=== PATIENT | male | born 1950 | race Hispanic/Latino ===

== ENCOUNTER → 2018-02-13 | Outpatient (CLI) | payer OTHER | END | disposition home or self-care (01) | LOC: RAH 10:36 | PROVIDERS: ATTEND Urology | DX: N20.0 Calculus of kidney (principal) | CPT/HCPCS: 74018; 76100 ==

== ENCOUNTER 2019-04-09 14:24 | Inpatient (IN) | payer OTHER ==
[~2019-04-09] VITALS: Ht 170.2 cm; Wt 99.7 kg
[2019-04-09] MEDS ORDERED: ZOSYN 3.375GM+NS 50ML 50 ML IV ONE (14:47)
[2019-04-09] MEDS ORDERED: LEVOFLOXACIN 500 MG/D5W 100 ML 100 ML ONE (14:47)
[2019-04-09] MEDS ORDERED: ACETAMINOPHEN EXTRA STRENGTH 500 MG TABLET ONE (14:48)
[2019-04-09] MEDS ORDERED: SODIUM CHLORIDE 0.9% 1000ML 3,000 ML IV ONE (14:49)
[2019-04-09 15:02] LABS: BASOPHILS % (AUTO) 0.2 % (0.0-5.0); EOSINOPHILS % (AUTO) 0.1 % (0.0-8.0); LYMPHOCYTES % (AUTO) 23.1 % (21.0-51.0); MEAN CORPUSCULAR HGB CONC 34.2 g/dL (32.0-36.0); MEAN CORPUSCULAR VOLUME 87.8 fL (79-99); MONOCYTES % (AUTO) 2.1 % (3.0-13.0); NEUTROPHILS % (AUTO) 74.5 % (40.0-77.0); NUCLEATED RED BLOOD CELLS 0.1 % (0.0-0.19); PLATELET COUNT (AUTO) 120 K/uL (130-400); RED BLOOD CELL COUNT(AUTO) 4.45 MIL/uL (4.50-6.20); RED CELL DISTRIBUTION WIDTH 12.7 % (11.0-15.5); WHITE BLOOD COUNT (AUTO) 8.4 K/uL (4.8-10.8)
[2019-04-09 15:21] LABS: INR 0.93 (0.85-1.15); PARTIAL THROMBOPLASTIN TIME 30.8 SEC (26.3-35.5); PROTHROMBIN TIME 9.8 SEC (9.6-11.6)
[2019-04-09 15:26] LABS: CARBON DIOXIDE 18 mmol/L (21-32); CHLORIDE 97 mmol/L (101-111); CREATININE 1.3 mg/dL (0.5-1.5); GLOMERULAR FILTR. RATE CALC 58 mL/min (>60); GLUCOSE,RANDOM 202 mg/dL (70-105); POTASSIUM 3.9 mmol/L (3.5-5.1); SODIUM SERUM 133 mmol/L (136-145); UREA NITROGEN, BLOOD 10 mg/dL (7-18)
[2019-04-09 15:29] LABS: RAPID GROUP A STREP POSITIVE (NEGATIVE)
[2019-04-09 15:37] LABS: ALANINE AMINOTRANSFERASE 47 U/L (12-78); ASPARTATE AMINOTRANSFERASE 59 U/L (10-37); BILIRUBIN,TOTAL 1.3 mg/dL (0.2-1.0); CREATINE KINASE, TOTAL 96 U/L (21-232); MYOGLOBIN 33 ng/mL (10-92); TOTAL PROTEIN, SERUM 8.6 g/dL (6.0-8.3); TROPONIN I < 0.04 ng/mL (0.00-0.06)
[2019-04-09 16:19] LABS: ABG BASE EXCESS -5.8 mmol/L (-2.0-3.0); ABG HCO3 16.6 mmol/L (21.0-28.0); ABG OXYGEN SATURATION 97.9 % (95.0-99.0); ABG PCO2 26 mmHg (35-48)
[2019-04-09 16:45] LABS: APPEARANCE,URINE CLOUDY (CLEAR); BILIRUBIN,URINE NEGATIVE (NEGATIVE); COLOR,URINE YELLOW (YELLOW); GLUCOSE, URINE (UA) 250 mg/dL (NEGATIVE); KETONES,URINE 40 mg/dL (NEGATIVE); LEUKOCYTE ESTERASE ,URINE MODERATE (NEGATIVE); NITRATE,URINE POSITIVE (NEGATIVE); OCCULT BLOOD,URINE MODERATE (NEGATIVE); PROTEIN,URINE 100 mg/dL (NEGATIVE)
[2019-04-09 17:01] LABS: WBC,URINE 26-50 /HPF (0-1)
[2019-04-09 17:02] LABS: BACTERIA,URINE Few /HPF (None Seen); SQUAMOUS EPITHELIAL CELL,UR Rare /HPF (0-2)
[2019-04-09] MEDS: MEROPENEM 500 MG VIAL IV SCH (18:00)
[2019-04-09] MEDS: SODIUM CHLORIDE 0.9% 1000ML 1,000 ML IV SCH ×2 (18:09→23:52)
[2019-04-09] MEDS ORDERED: LACTULOSE 20 GM/30 ML UDCUP PO PRN (18:15)
[2019-04-09] MEDS ORDERED: MORPHINE SULFATE 2 MG/ML 1ML SYG IV PRN (18:15)
[2019-04-09] MEDS ORDERED: ACETAMINOPHEN 325 MG TAB PO PRN ×2 (18:15)
[2019-04-09] MEDS: DOXYCYCLINE 100MG+NS 250ML 250 ML IV SCH (18:15)
[2019-04-09] MEDS ORDERED: ONDANSETRON HCL 4 MG/2 ML VIAL IV PRN (18:15)
[2019-04-09] MEDS ORDERED: VANCOMYCIN PROTOCOL PER PHARMACY IV PRN (18:15)
[2019-04-09 18:50] LABS: HEMOGLOBIN A1C 6.9 % (4.0-6.0)
[2019-04-09] MEDS ORDERED: MEROPENEM 500 MG VIAL ONE (19:35)
[2019-04-09] MEDS ORDERED: SODIUM CHLORIDE 0.9% 1000ML 1,000 ML IV ONE (19:36)
[2019-04-09] MEDS ORDERED: SODIUM CHLORIDE 0.9% 50 ML IV ONE (19:36)
[2019-04-09 19:42] LABS: MAGNESIUM 1.8 mg/dL (1.80-2.40); PHOSPHORUS 1.3 mg/dL (2.5-4.9)
[2019-04-09] MEDS ORDERED: VANCOMYCIN 2 GM in SODIUM CHLORIDE 0.9% 500ML 500 ML IV ONE (20:00)
[2019-04-09] MEDS ORDERED: COMPOUND IV REFRIGERATED 1 EACH IVSOLN MISC PRN (20:30)
[2019-04-09] MEDS ORDERED: DOXYCYCLINE 100MG+NS 250ML 250 ML IV ONE (20:41)
[2019-04-09] MEDS: FAMOTIDINE/PF 20 MG/2 ML VIAL IV SCH (21:00)
[2019-04-09] MEDS: INSULIN GLARGINE 100 UNITS/ML 10 ML VIAL SQ SCH (21:00)
[2019-04-09] MEDS ORDERED: FAMOTIDINE/PF 20 MG/2 ML VIAL IV ONE (21:58)
[2019-04-09 23:15] VITALS: BP 111/40
[2019-04-10] VITALS (15 sets, daily range): BP systolic 93–137; BP diastolic 44–84
[2019-04-10] MEDS ORDERED: ESCI10TA54 PO (00:28)
[2019-04-10] MEDS ORDERED: FINA5TAB41 PO (00:28)
[2019-04-10] MEDS ORDERED: DONE10TA36 PO (00:28)
[2019-04-10] MEDS ORDERED: TERB250T51 PO (00:28)
[2019-04-10] MEDS ORDERED: SIMV40TA59 PO (00:28)
[2019-04-10] MEDS ORDERED: MIRA50TA PO (00:28)
[2019-04-10] MEDS ORDERED: NITR100C PO (00:28)
[2019-04-10] MEDS ORDERED: SILO8CAP6 PO (00:28)
[2019-04-10] MEDS ORDERED: MEMA10PO MC (00:28)
[2019-04-10] MEDS ORDERED: METF-445 PO (00:28)
[2019-04-10] MEDS ORDERED: LISI2.5T2 PO (00:28)
[2019-04-10] MEDS: MEROPENEM 500 MG VIAL IV SCH ×2 (02:00→09:42)
[2019-04-10] MEDS: SODIUM CHLORIDE 0.9% 1000ML 1,000 ML IV SCH ×2 (05:27→13:31)
[2019-04-10] MEDS ORDERED: VANCOMYCIN 750MG + NS 250 ML IV SCH ×2 (06:00)
[2019-04-10] MEDS: DOXYCYCLINE 100MG+NS 250ML 250 ML IV SCH (07:02)
[2019-04-10] MEDS: FAMOTIDINE/PF 20 MG/2 ML VIAL IV SCH ×2 (09:42→21:45)
[2019-04-10] MEDS: ENOXAPARIN SODIUM 40 MG/0.4 ML SYRINGE SQ SCH (09:42)
--- NOTE | 2019-04-10 10:00 | NUR ---
DR Yvonne ACOSTA HERE TO SEE PATIENT. UPDATED. SPOKE TO PATIENT AND SPOUSE IN DETAIL REGARDING STATUS AND PLAN OF CARE. ALL QUESTIONS ANSWERED IN DETAIL. STATUS DOWNGRADED.
[2019-04-10 11:09] LABS: BASOPHILS % (AUTO) 0.4 % (0.0-5.0); EOSINOPHILS % (AUTO) 0.7 % (0.0-8.0); HEMATOCRIT 28.7 % (42-54); LYMPHOCYTES % (AUTO) 17.1 % (21.0-51.0); MEAN CORPUSCULAR HEMOGLOBIN 29.6 pg (27.0-33.0); MEAN CORPUSCULAR HGB CONC 34.6 g/dL (32.0-36.0); MEAN CORPUSCULAR VOLUME 85.6 fL (79-99); MONOCYTES % (AUTO) 12.9 % (3.0-13.0); NEUTROPHILS % (AUTO) 68.9 % (40.0-77.0); PLATELET COUNT (AUTO) 99 K/uL (130-400); RED BLOOD CELL COUNT(AUTO) 3.36 MIL/uL (4.50-6.20); RED CELL DISTRIBUTION WIDTH 12.8 % (11.0-15.5); WHITE BLOOD COUNT (AUTO) 6.3 K/uL (4.8-10.8)
[2019-04-10 11:19] LABS: CREATININE 0.9 mg/dL (0.5-1.5); POTASSIUM 3.5 mmol/L (3.5-5.1)
[2019-04-10 11:24] LABS: ALBUMIN 2.7 g/dL (3.5-5.0); BILIRUBIN,TOTAL 0.4 mg/dL (0.2-1.0); TOTAL PROTEIN, SERUM 5.8 g/dL (6.0-8.3)
[2019-04-10] MEDS ORDERED: PHARMACY COMMUNICATION MISC SCH ×3 (11:30→13:00)
--- NOTE | 2019-04-10 12:05 | NUR ---
ANGELINE Sarah met with pt and family. Pt lives with Lenora Curry [phone]. Pt reports prior to admit, pt was independent of all ADLS, no DME or in home care services. Deny dc needs, plan is home with family. Addendum: 04/10/19 at 1207 by JULIENNE LIANG SS Amended: Links added.
[2019-04-10] MEDS: NEUTRA-PHOS PACKET 1 EACH PO SCH ×3 (13:30→22:57)
[2019-04-10] MEDS: POTASSIUM CHLORIDE 20 MEQ ERTAB PO SCH ×3 (13:31→16:37)
[2019-04-10] MEDS: UNASYN 3GM+NS 100ML 100 ML IV SCH ×2 (16:37→22:47)
[2019-04-10] MEDS: DONEPEZIL HCL 5 MG TAB PO SCH (16:37)
--- NOTE | 2019-04-10 16:39 | NUR ---
PATIENT TO TRANSFER TO MEDICAL FLOOR ROOM 414. REPORT GIVEN TO BHAVIK.
--- NOTE | 2019-04-10 17:09 | NUR ---
TRANSFERRED TO ROOM 414 VIA WHEELCHAIR WITH ALL BELONGINGS. SPOUSE AND DAUGHTER WITH PATIENT. DINNER TRAY PROVIDED. SETTLED IN ROOM. NO DISTRESS UPON TRANSFER. PATIENT AMBULATED TO RESTROOM WITH MINIMAL ASSISTANCE FROM SPOUSE. STRONG, STEADY GAIT. MELLISA GUTIERRES IN ROOM - ENDORSED CARE.
--- NOTE | 2019-04-10 17:09 | NUR ---
RECEIVED REPORT AND PATIENT RECEIVED PATIENT TO ROOM 414 WITH FAMILY AT SIDE PATIENT FULL CODE, HX OF DEMENTIA AND FORGETFULNESS HTN, BACK SURGERY FLU A & B NEG , POSITIVE FOR STREP. HAS NS @ 100 CC/HR INFUSING AND TWO SITES RAC 18G AND LAC 18G BOTH PLACED ON 04/09/19,K+ 3.5 REPLACEMENT OF 60MEG GIVEN BEFORE TRANSFER. LAB W 6.3, H/H 9.9/28.7 N 139, K 3.5, BUN 8 , CRE 0.9 MAG 1.8, SR 70-80'S UP IN CHAIR FULL WEIGHT BEARING UA SENT PENDING RESULT OF CULTURE, OR SON STAY WITH PATIENT , STANDING TONIGHT ., PATIENT ORIENTATE TO ROOM WILL CONTINUE TO MONITOR
[2019-04-10] MEDS ORDERED: GLUCAGON 1MG KIT 1 MG ML IM PRN (17:45)
[2019-04-10] MEDS ORDERED: DEXTROSE 50%-WATER 50 ML DISP.SYRIN IV PRN (17:45)
[2019-04-10] MEDS: INSULIN HUMULIN R 100 UNIT/ML 3ML SQ SCH (20:10)
[2019-04-10] MEDS: INSULIN GLARGINE 100 UNITS/ML 10 ML VIAL SQ SCH (20:51)
[2019-04-10] MEDS: MEMANTINE HCL 5 MG TABLET PO SCH (21:16)
[2019-04-10] MEDS: SIMVASTATIN 20 MG TABLET PO SCH (21:16)
[2019-04-11] VITALS (7 sets, daily range): BP systolic 130–155; BP diastolic 60–97
[2019-04-11] MEDS: MEROPENEM 500 MG VIAL IV SCH ×3 (01:31→17:51)
[2019-04-11] MEDS: SODIUM CHLORIDE 0.9% 1000ML 1,000 ML IV SCH ×4 (01:35→20:50)
[2019-04-11] MEDS: UNASYN 3GM+NS 100ML 100 ML IV SCH (05:01)
[2019-04-11] MEDS: INSULIN HUMULIN R 100 UNIT/ML 3ML SQ SCH ×4 (06:00→21:06)
[2019-04-11] MEDS: IPRATROPIUM/ALBUTEROL SULFATE 3 ML SOLUTION IH SCH ×4 (06:05→23:15)
[2019-04-11 07:10] LABS: CREATININE 0.9 mg/dL (0.5-1.5); POTASSIUM 3.7 mmol/L (3.5-5.1)
[2019-04-11 07:20] LABS: HEMATOCRIT 29.6 % (42-54); MEAN CORPUSCULAR HEMOGLOBIN 29.8 pg (27.0-33.0); MEAN CORPUSCULAR HGB CONC 34.1 g/dL (32.0-36.0); MEAN CORPUSCULAR VOLUME 87.4 fL (79-99); PLATELET COUNT (AUTO) 112 K/uL (130-400); RED BLOOD CELL COUNT(AUTO) 3.39 MIL/uL (4.50-6.20); RED CELL DISTRIBUTION WIDTH 12.7 % (11.0-15.5); WHITE BLOOD COUNT (AUTO) 6.8 K/uL (4.8-10.8)
[2019-04-11] MEDS: Silodosin 8 MG PO SCH (09:00)
[2019-04-11] MEDS: Terbinafine HCl 250 MG PO SCH (09:00)
[2019-04-11] MEDS: Escitalopram Oxalate 10 MG PO SCH (09:00)
--- NOTE | 2019-04-11 10:00 | NUR ---
WAITING ON SPOUSE TO COME IN TO SIGN CONSENT FOR PLACEMENT OF PICC LINE. PT. WITH HX. OF DEMENTIA AND SPOUSE SIGNS ALL HIS PAPERS.
[2019-04-11] MEDS: FAMOTIDINE/PF 20 MG/2 ML VIAL IV SCH ×2 (10:12→20:54)
[2019-04-11] MEDS: LISINOPRIL 2.5 MG TABLET PO SCH (10:12)
[2019-04-11] MEDS: MEMANTINE HCL 5 MG TABLET PO SCH ×2 (10:12→20:54)
[2019-04-11] MEDS: FINASTERIDE 5 MG TABLET PO SCH (10:12)
[2019-04-11] MEDS: ENOXAPARIN SODIUM 40 MG/0.4 ML SYRINGE SQ SCH (10:13)
[2019-04-11] MEDS: NEUTRA-PHOS PACKET 1 EACH PO SCH ×4 (10:16→20:56)
[2019-04-11 11:29] LABS: INR 0.92 (0.85-1.15); PROTHROMBIN TIME 9.7 SEC (9.6-11.6)
--- NOTE | 2019-04-11 16:00 | NUR ---
PICC LINE PLACED AND CXR DONE. LT. UPPER ARM. NO ORDER TO USE YET DRESSING WELL SECURED, NO BLEEDING NOTED.
--- NOTE | 2019-04-11 17:00 | NUR ---
DISCHARGE PLAN CONFLICT ORDER RECD FOR SNF. SPOKE TO MARICEL AT [facility], DID NOT GIVE CONSENT YET SAW DAUGHTER IN HALLWAY WITH SPOUSE, STATES NO PT WILL NOT GO TO A SNF. ASKED CAN WE DO AIU IN [place]?, PT IS FROM [place], REC ABX AUG 2018, NO HOSPITALIZATION IN LAST 6 MOS. [address] WITH [address] HULL BEFORE, CAN WE MAKE INQUIRY? CALL TO DR HULL OFFICE SPOKE TO ERIN TO INQUIRE ABOUT PROCESS OF REFERRAL FROM [facility] TO [facility] VB [place], WAS TOLD EVERYTHING CAN BE DONE AT DR. MARVIN OFFICE, [facility]. CALL TO SHARATH CASTELLANO, ADVISED HER THAT FAMILY DOES NOT WANT SNF AT ALL, WANTS AIU IN [place]. . GRAY STATES SPOUSE AGREED TO SNF,WILL SPEAK TO FAMILY IN AM. NO AIU ORDERS GIVEN. ADVISED DAUGHTER, SHE STATES MOM DOES NOT WANT SNF FOR PT. CM TO FOLLOW. ANTICIPATE DC ON SUNDAY TO DR. HULL'S CLINIC IF FAMILY AGAIN REFUSES SNF Addendum: 04/11/19 at 1934 by ZANDER LAMBERT RN CM Amended: Links added.
[2019-04-11] MEDS: DONEPEZIL HCL 5 MG TAB PO SCH (17:53)
[2019-04-11] MEDS: SIMVASTATIN 20 MG TABLET PO SCH (20:54)
[2019-04-11] MEDS: INSULIN GLARGINE 100 UNITS/ML 10 ML VIAL SQ SCH (21:05)
[2019-04-12] MEDS: MEROPENEM 500 MG VIAL IV SCH ×3 (02:18→17:44)
[2019-04-12 03:45] VITALS: BP 145/74
[2019-04-12 05:03] LABS: BASOPHILS % (AUTO) 0.5 % (0.0-5.0); EOSINOPHILS % (AUTO) 2.4 % (0.0-8.0); HEMATOCRIT 29.5 % (42-54); LYMPHOCYTES % (AUTO) 26.3 % (21.0-51.0); MEAN CORPUSCULAR HEMOGLOBIN 29.7 pg (27.0-33.0); MEAN CORPUSCULAR HGB CONC 34.8 g/dL (32.0-36.0); MEAN CORPUSCULAR VOLUME 85.4 fL (79-99); MONOCYTES % (AUTO) 9.7 % (3.0-13.0); NEUTROPHILS % (AUTO) 61.1 % (40.0-77.0); PLATELET COUNT (AUTO) 118 K/uL (130-400); RED BLOOD CELL COUNT(AUTO) 3.45 MIL/uL (4.50-6.20); RED CELL DISTRIBUTION WIDTH 12.7 % (11.0-15.5); WHITE BLOOD COUNT (AUTO) 4.6 K/uL (4.8-10.8)
[2019-04-12 05:10] LABS: CREATININE 0.8 mg/dL (0.5-1.5); POTASSIUM 3.3 mmol/L (3.5-5.1)
[2019-04-12] MEDS: INSULIN HUMULIN R 100 UNIT/ML 3ML SQ SCH ×4 (06:13→21:00)
[2019-04-12] MEDS: IPRATROPIUM/ALBUTEROL SULFATE 3 ML SOLUTION IH SCH ×4 (06:15→23:19)
[2019-04-12 08:00] VITALS: BP 131/63
[2019-04-12] MEDS: MEMANTINE HCL 5 MG TABLET PO SCH ×2 (08:25→21:40)
[2019-04-12] MEDS: FINASTERIDE 5 MG TABLET PO SCH (08:25)
[2019-04-12] MEDS: LISINOPRIL 2.5 MG TABLET PO SCH (08:25)
[2019-04-12] MEDS: LACTOBACILLUS RHAMNOSUS GG 1 EACH CAP.SPRINK PO SCH (08:25)
[2019-04-12] MEDS: FAMOTIDINE/PF 20 MG/2 ML VIAL IV SCH ×2 (08:25→21:40)
[2019-04-12] MEDS: NEUTRA-PHOS PACKET 1 EACH PO SCH (08:26)
[2019-04-12] MEDS: ENOXAPARIN SODIUM 40 MG/0.4 ML SYRINGE SQ SCH (08:27)
[2019-04-12] MEDS: Terbinafine HCl 250 MG PO SCH (09:00)
[2019-04-12] MEDS: Silodosin 8 MG PO SCH (09:00)
[2019-04-12] MEDS: Escitalopram Oxalate 10 MG PO SCH (09:00)
[2019-04-12] MEDS: SODIUM CHLORIDE 0.9% 1000ML 1,000 ML IV SCH (10:28)
[2019-04-12 12:00] VITALS: BP 164/85
--- NOTE | 2019-04-12 14:00 | NUR ---
GETTING ANXIOUS, WANTS TO GO HOME, NOT LISTENING TO ANY REASONING FROM FAMILY, DR. Hussein. HER AT THIS TIME AND GAVE ORDER FOR ATIVAN 0.5MG IV Q 6 PRN
[2019-04-12] MEDS ORDERED: LORAZEPAM 2 MG/ML 1 ML VIAL IVP PRN (14:30)
[2019-04-12] MEDS ORDERED: ONDANSETRON HCL 4 MG/2 ML VIAL IV PRN (14:45)
[2019-04-12] MEDS: POTASSIUM CHLORIDE 20 MEQ ERTAB PO SCH (14:52)
--- NOTE | 2019-04-12 15:00 | NUR ---
ATIVAN DOSE GIVEN, WILL FOLLOW.
[2019-04-12 16:00] VITALS: BP 162/87
[2019-04-12] MEDS: DONEPEZIL HCL 5 MG TAB PO SCH (17:34)
--- NOTE | 2019-04-12 18:00 | NUR ---
HAS SETTLED DOWN, SITTING IN CHAIR, FAMILY IN ROOM.
--- NOTE | 2019-04-12 18:01 | NUR ---
NEW IV SART 20G RT. FOREARM.
[2019-04-12 19:00] VITALS: BP 142/72
[2019-04-12] MEDS: SIMVASTATIN 20 MG TABLET PO SCH (21:40)
[2019-04-12] MEDS: INSULIN GLARGINE 100 UNITS/ML 10 ML VIAL SQ SCH (21:51)
[2019-04-13] VITALS: BP 173/90
[2019-04-13] MEDS: MEROPENEM 500 MG VIAL IV SCH ×3 (02:06→18:26)
[2019-04-13 04:13] VITALS: BP 126/65
[2019-04-13 05:43] LABS: HEMATOCRIT 30.6 % (42-54); MEAN CORPUSCULAR HEMOGLOBIN 30.1 pg (27.0-33.0); MEAN CORPUSCULAR HGB CONC 34.8 g/dL (32.0-36.0); MEAN CORPUSCULAR VOLUME 86.5 fL (79-99); NUCLEATED RED BLOOD CELLS 0.1 % (0.0-0.19); PLATELET COUNT (AUTO) 147 K/uL (130-400); RED BLOOD CELL COUNT(AUTO) 3.54 MIL/uL (4.50-6.20); RED CELL DISTRIBUTION WIDTH 12.5 % (11.0-15.5); WHITE BLOOD COUNT (AUTO) 4.2 K/uL (4.8-10.8)
[2019-04-13 05:51] LABS: CREATININE 0.8 mg/dL (0.5-1.5); POTASSIUM 3.7 mmol/L (3.5-5.1)
[2019-04-13] MEDS: IPRATROPIUM/ALBUTEROL SULFATE 3 ML SOLUTION IH SCH ×3 (06:14→19:15)
[2019-04-13] MEDS: INSULIN HUMULIN R 100 UNIT/ML 3ML SQ SCH ×4 (07:30→21:00)
--- NOTE | 2019-04-13 08:00 | NUR ---
AM SHIFT ASSESSMENT.
[2019-04-13 08:15] VITALS: BP 137/82
[2019-04-13] MEDS: Silodosin 8 MG PO SCH (09:00)
[2019-04-13] MEDS: Escitalopram Oxalate 10 MG PO SCH (09:00)
[2019-04-13] MEDS ORDERED: PANTOPRAZOLE 40 MG/VIAL IVP SCH (09:00)
[2019-04-13] MEDS: Terbinafine HCl 250 MG PO SCH (09:00)
[2019-04-13] MEDS: LACTOBACILLUS RHAMNOSUS GG 1 EACH CAP.SPRINK PO SCH (09:10)
[2019-04-13] MEDS: MEMANTINE HCL 5 MG TABLET PO SCH ×2 (09:10→22:22)
[2019-04-13] MEDS: FINASTERIDE 5 MG TABLET PO SCH (09:11)
[2019-04-13] MEDS: LISINOPRIL 2.5 MG TABLET PO SCH (09:11)
[2019-04-13] MEDS: FAMOTIDINE 20MG TAB 20 MG TAB PO SCH ×2 (09:11→22:22)
[2019-04-13] MEDS: ENOXAPARIN SODIUM 40 MG/0.4 ML SYRINGE SQ SCH (09:13)
--- NOTE | 2019-04-13 10:00 | NUR ---
CONFUSED AT TIMES AND DOES NOT ALWAYS FOLLOW COMMANDS, ALSO DOES NOT ALWAYS FOLLOW COMMANDS. FAMILY MEMBER AT BEDSIDE AT ALL TIMES.
[2019-04-13 11:36] VITALS: BP 131/85
[2019-04-13] MEDS: PANTOPRAZOLE SODIUM 40 MG TABLET.DR PO SCH (11:49)
[2019-04-13] MEDS: POTASSIUM CHLORIDE 20 MEQ ERTAB PO SCH (13:00)
--- NOTE | 2019-04-13 13:56 | NUR ---
POT. DOSE HELD, ONE X DOSE AND HAS BEEN GIVEN.
[2019-04-13] MEDS: DONEPEZIL HCL 5 MG TAB PO SCH (16:30)
[2019-04-13 21:23] VITALS: BP 142/85
[2019-04-13] MEDS: SIMVASTATIN 20 MG TABLET PO SCH (22:22)
[2019-04-13] MEDS: INSULIN GLARGINE 100 UNITS/ML 10 ML VIAL SQ SCH (22:27)
[2019-04-14 00:02] VITALS: BP 152/78
[2019-04-14] MEDS: IPRATROPIUM/ALBUTEROL SULFATE 3 ML SOLUTION IH SCH ×4 (00:02→17:33)
[2019-04-14] MEDS: MEROPENEM 500 MG VIAL IV SCH ×3 (01:17→18:02)
[2019-04-14 03:30] VITALS: BP 139/73
[2019-04-14] MEDS: INSULIN HUMULIN R 100 UNIT/ML 3ML SQ SCH ×3 (07:30→16:30)
[2019-04-14 08:02] VITALS: BP 142/82
[2019-04-14] MEDS: Silodosin 8 MG PO SCH (09:00)
[2019-04-14] MEDS: FAMOTIDINE 20MG TAB 20 MG TAB PO SCH (09:00)
[2019-04-14] MEDS: Escitalopram Oxalate 10 MG PO SCH (09:00)
[2019-04-14] MEDS: Terbinafine HCl 250 MG PO SCH (09:00)
[2019-04-14] MEDS: MEMANTINE HCL 5 MG TABLET PO SCH (10:06)
[2019-04-14] MEDS: LACTOBACILLUS RHAMNOSUS GG 1 EACH CAP.SPRINK PO SCH (10:06)
[2019-04-14] MEDS: PANTOPRAZOLE SODIUM 40 MG TABLET.DR PO SCH (10:06)
[2019-04-14] MEDS: FINASTERIDE 5 MG TABLET PO SCH (10:06)
[2019-04-14] MEDS: LISINOPRIL 2.5 MG TABLET PO SCH (10:07)
[2019-04-14] MEDS: ENOXAPARIN SODIUM 40 MG/0.4 ML SYRINGE SQ SCH (10:10)
[2019-04-14 11:19] VITALS: BP 140/83
[2019-04-14] MEDS: POTASSIUM CHLORIDE 20 MEQ ERTAB PO SCH (12:01)
--- NOTE | 2019-04-14 15:00 | NUR ---
DR. HULL WILL DO ABX REFERRAL SENT ORDERED BY DR. Cisneros AND FANI EARLY TO DR. HULL IN [place] TO ADMIN IV ABX. CALL TO ERIN AT THE OFFICE TO CONFIRM RECIEPT AND SETUP FOR PT AT 11AM ON 04/15/19 Addendum: 04/15/19 at 0800 by ZANDER LAMBERT RN CM Amended: Links added.
[2019-04-14 16:15] VITALS: BP 130/83
[2019-04-14] MEDS: DONEPEZIL HCL 5 MG TAB PO SCH (17:16)
--- NOTE | 2019-04-14 18:30 | NUR ---
DISCHARGE DISCHARGE INSTRUCTION PROVIDED TO PATIENT, PATIENTS SPOUSE, AND HIS DAUGHTER REGARDING DISCHARGE RX (MERREM), SCHEDULED APPT WITH DR. HULL, UTI CARE AT HOME, PICC LINE CARE AT HOME. PATIENT AND FAMILY VERBALIZED UNDERSTANDING OF DISCHARGE TEACHING. REMOVED 20G IV FROM RIGHT FA, CATHETER TIP INTACT. PICC LINE TO LEFT UPPER ARM 5 FR, DOUBLE LUMEN IN PLACE AT TIME OF DISCHARGE, BOTH LUMENS FLUSHING WELL, AND ABLE TO ASPIRATE BLOOD FROM EACH LUMEN. PICC LINE DRESSING CLEAN, DRY, AND INTACT AT TIME OF DISCHARGE. PATIENT TO BE DRIVEN HOME BY HIS FAMILY.
== END 2019-04-14 19:05 | disposition home or self-care (01) | DRG 872 ==
LOC: EDH 14:24 → EDHIP 18:09 → 2CH 22:38 → 4CH 04-10 17:03
PROVIDERS: ADMIT Internal Medicine; ATTEND Internal Medicine
PROC: 02HV33Z Insertion of Infusion Device into Superior Vena Cava, Percutaneous Approach (ICD-10-PCS; principal; 2019-04-11)
DX: A40.0 Sepsis due to streptococcus, group A (principal); N39.0 Urinary tract infection, site not specified; N17.9 Acute kidney failure, unspecified; R65.20 Severe sepsis without septic shock; E86.1 Hypovolemia; E11.9 Type 2 diabetes mellitus without complications; E66.9 Obesity, unspecified; E78.2 Mixed hyperlipidemia; E87.6 Hypokalemia; F02.80 Dementia in other diseases classified elsewhere, unspecified severity, without behavioral disturbance, psychotic disturbance, mood disturbance, and anxiety; G30.9 Alzheimer's disease, unspecified; I10 Essential (primary) hypertension; J44.9 Chronic obstructive pulmonary disease, unspecified; N20.0 Calculus of kidney; N40.0 Benign prostatic hyperplasia without lower urinary tract symptoms; Z16.12 Extended spectrum beta lactamase (ESBL) resistance; Z16.24 Resistance to multiple antibiotics; Z83.3 Family history of diabetes mellitus; Z87.891 Personal history of nicotine dependence
CPT/HCPCS: 36415; 36600; 71045; 74018; 76770; 80048; 80053; 80202; 81001; 82550; 82803; 82948; 83036; 83605; 83735; 83874; 84100; 84145; 84484; 85025; 85027; 85610; 85730; 87040; 87077; 87088; 87186; 87804; 87880; 93005; 94640; 94664; 97039; 99291; C1894; C9113; G0378; J0295; J1650; J1815; J1956; J2060; J2185; J2543; J3370; J3490; J7030; J7040